=== PATIENT | male | born 1950 | race Caucasian/White ===

== ENCOUNTER 2021-06-14 10:06 | Emergency (ER) | payer SELFPAY ==
[~2021-06-14] VITALS: Ht 167.6 cm; Wt 74.0 kg
[~2021-06-14 10:06] MED LIST: DILAUDID 2MG2 MG/TA1 PO; ESCITALOPRAM OX10 MG PO; METOPROL TAR25 M1 PO; PROTONIX40 M2 PO
[2021-06-14 12:17] VITALS: BP 122/74
== END 2021-06-14 12:18 | disposition home or self-care (01) | DRG 74 ==
LOC: ED 10:06
DX: G62.9 Polyneuropathy, unspecified (principal)